=== PATIENT | male | born 1995 | race African-American/Black ===

== ENCOUNTER 2019-02-12 11:13 | Emergency (ER) | payer OTHER ==
[~2019-02-12] VITALS: Ht 193 cm; Wt 127.0 kg
[2019-02-12] MEDS ORDERED: NKM (11:18)
--- NOTE | 2019-02-12 11:26 | NUR ---
ED Nurse Note: Patient walked in ED from home c/o painful urination x 2 days and requesting for STD testing. Patient denies discharge. ERMD at bedside at this time. Urine sample sent down to lab.
[2019-02-12 11:28] VITALS: BP 130/84
[2019-02-12] MEDS ORDERED: Azithromycin 250mg tab ORAL ONE (11:30)
[2019-02-12] MEDS ORDERED: cefTRIAXone 500mg Inj IM ONE (11:30)
[2019-02-12] MEDS ORDERED: Lidocaine 1% MPF 10mg/ml 5ml INJ ONE (11:30)
--- NOTE | 2019-02-12 11:32 | Emergency Room Report ---
History of Present Illness General Chief Complaint: Male Urogenital Problems Source: Patient Present Illness HPI 23-year-old male presents with dysuria x2 days no aggravating leaving factors severity is mild, no fevers no chills no new lesions, patient had unprotected oral sex 2 days ago, no nausea no vomiting no abdominal pain patient presents for evaluation Allergies: Coded Allergies: No Known Allergies (Unverified , 02/12/19) Patient History Past Medical History: see triage record Reviewed Nursing Documentation: PMH: Agreed; PSxH: Agreed Nursing Documentation-PMH Past Medical History: No Stated History Review of Systems All Other Systems: negative except mentioned in HPI Physical Exam Vital Signs Date Time Temp Pulse Resp B/P (MAP) Pulse Ox O2 Delivery O2 Flow Rate FiO2 02/12/19 11:15 98.1 90 19 130/84 (99) 97 Room Air General Appearance: well appearing, no apparent distress Head: normocephalic, atraumatic ENT: hearing grossly normal, normal voice Neck: full range of motion, supple Respiratory: no respiratory distress, speaking full sentences Genitourinary: other - Control Clerk Head Christina RN, No lesions, uncircumcised penis, Neurologic: alert, normal gait Psychiatric: mood/affect normal Skin: no rash Medical Decision Making Diagnostic Impression: Primary Impression: STD exposure ER Course 23-year-old male presents with possible STD exposure, will treat prophylactically ceftriaxone and azithro refer to orders, counseled patient to follow-up with PCP and obtain a STD testing Disposition home with return precautions Last Vital Signs Date Time Temp Pulse Resp B/P (MAP) Pulse Ox O2 Delivery O2 Flow Rate FiO2 02/12/19 11:15 98.1 90 19 130/84 (99) 97 Room Air Condition: Stable Referrals: [facility] Patient Instructions: Chlamydia, Male, Gonorrhea, Urethritis, Adult Additional Instructions: The patient was provided with discharge instructions, notified to follow-up with a primary care doctor and or specialist in the next 24-48 hours, and to return to the ED if they have worsening of their symptoms. Please note that this report is being documented using DRAGON technology. This can lead to erroneous entry secondary to incorrect interpretation by the dictating instrument. Reddy Bee MD Feb 12, 2019 11:32
--- NOTE | 2019-02-12 11:42 | NUR ---
ER DISCHARGE NOTE: Patient is cleared to be discharged per ERMD, pt is aox4, on room air, with stable vital signs. pt was given dc and prescription instructions, pt was able to verbalize understanding, pt id band removed without complications. pt is able to ambulate with steady gait. pt took all belongings.
[2019-02-12 11:53] VITALS: BP 130/84
== END 2019-02-12 11:42 | disposition home or self-care (01) ==
LOC: EMR 11:30
DX: R30.0 Dysuria (principal); Z20.2 Contact with and (suspected) exposure to infections with a predominantly sexual mode of transmission
CPT/HCPCS: 96372; 96374; J0696; Q0144; Z7502; 99284

== ENCOUNTER 2019-03-10 20:40 | Emergency (ER) | payer OTHER ==
[~2019-03-10] VITALS: Ht 193 cm; Wt 127.5 kg
[~2019-03-10 20:40] MED LIST: NKM
--- NOTE | 2019-03-10 20:57 | NUR ---
ED Nurse Note: Patient walked into ED c/o hematuria for 2 weeks now, states that he was seen here last month and was given antibiotics and was advised to not have intercourse, but he did and now reports of repeat of symptoms from last visit. ao4. nad. vss. ambulates with steady gait. family at bedside.
[2019-03-10 20:58] VITALS: BP 134/92
--- NOTE | 2019-03-10 21:03 | NUR ---
ED Nurse Note: ermd at bedside for evaluation. urine collected; sent down to lab.
[2019-03-10 21:41] LABS: APPEARANCE,URINE SLIGHTLY CLOUDY; BILIRUBIN, URINE NEGATIVE (NEGATIVE); GLUCOSE, URINE (UA) NEGATIVE (NEGATIVE); KETONES,URINE 1+ (NEGATIVE); LEUKOCYTE ESTERASE ,URINE 2+ (NEGATIVE); NITRITE,URINE NEGATIVE (NEGATIVE); PH,URINE 5 (4.5-8.0); PROTEIN,URINE 1+ (NEGATIVE); UROBILINOGEN,URINE 1 MG/DL (0.0-1.0)
[2019-03-10 21:42] LABS: COLOR,URINE YELLOW
--- NOTE | 2019-03-10 21:53 | Emergency Room Report ---
History of Present Illness General Chief Complaint: Male Urogenital Problems Source: Patient Present Illness HPI 23-year-old male presents ED for evaluation. Describing hematuria for the last 2 weeks. Describes some discomfort with urination. States that the hematuria has been resolving but persists. Pain is dull, 2 out of 10, nonradiating. Denies fevers or chills. Denies flank pain. States that he just a few days ago had multiple STD testing done and states they were all negative. Was here last month for similar presentation. Was subsequently treated and discharged states symptoms did improve. States that he did have unprotected sex since then and symptoms returned. No other aggravating relieving factors. Denies any other associated symptoms Allergies: Coded Allergies: No Known Allergies (Unverified , 02/12/19) Patient History Past Medical History: none Past Surgical History: none Pertinent Family History: none Social History: Denies: smoking, alcohol use, drug use Immunizations: UTD Reviewed Nursing Documentation: PMH: Agreed; PSxH: Agreed Nursing Documentation-PMH Past Medical History: No Stated History Review of Systems All Other Systems: negative except mentioned in HPI Physical Exam Vital Signs Date Time Temp Pulse Resp B/P (MAP) Pulse Ox O2 Delivery O2 Flow Rate FiO2 03/10/19 20:47 98.6 90 18 134/92 (106) 98 Room Air Sp02 EP Interpretation: reviewed, normal General Appearance: no apparent distress, alert, GCS 15, non-toxic Head: normocephalic, atraumatic Eyes: bilateral eye normal inspection, bilateral eye PERRL ENT: hearing grossly normal, normal pharynx, no angioedema, normal voice Neck: full range of motion, supple/symm/no masses Respiratory: chest non-tender, lungs clear, normal breath sounds, speaking full sentences Cardiovascular #1: regular rate, rhythm, no edema Cardiovascular #2: 2+ carotid (R), 2+ carotid (L), 2+ radial (R), 2+ radial (L) , 2+ dorsalis pedis (R), 2+ dorsalis pedis (L) Gastrointestinal: normal bowel sounds, non tender, soft, non-distended, no guarding, no rebound Rectal: deferred Genitourinary: normal inspection, no CVA tenderness Musculoskeletal: back normal, normal range of motion, gait/station normal, non- tender Neurologic: alert, motor strength/tone normal, oriented x3, sensory intact, responsive, speech normal Psychiatric: judgement/insight normal, memory normal, mood/affect normal, no suicidal/homicidal ideation Reflexes: 3+ bicep (R), 3+ bicep (L), 3+ tricep (R), 3+ tricep (L), 3+ knee (R) , 3+ knee (L) Lymphatic: no adenopathy Medical Decision Making Diagnostic Impression: Primary Impression: Cystitis ER Course Hospital Course 23 yo M presents with hematuria Differential diagnoses include: UTI, cystitis, pyelonephritis Clinical course Patient placed on stretcher. After initial history and physical I ordered UA UA + bacteria + blood I discussed findings with the patient. Patient states that he has had recent STD testing in the last few days which were negative for chlamydia, gonorrhea, syphilis, HIV. We will treat as UTI. I will prescribe antibiotics, Pyridium. States he does not have a PMD. I will provide referrals Diagnosis - cystitis Stable and discharged home with prescriptions for Rx Keflex, pyridium. Instructed to followup with PMD. Return to ED if symptoms recur or worsen Labs Test 03/10/19 20:53 Urine Color Yellow Urine Appearance Slightly cloudy Urine pH 5 (4.5-8.0) Urine Specific [place] 1.020 (1.005-1.035) Urine Protein 1+ (NEGATIVE) Urine Glucose (UA) Negative (NEGATIVE) Urine Ketones 1+ (NEGATIVE) Urine Blood 3+ (NEGATIVE) Urine Nitrite Negative (NEGATIVE) Urine Bilirubin Negative (NEGATIVE) Urine Urobilinogen 1 MG/DL (0.0-1.0) Urine Leukocyte Esterase 2+ (NEGATIVE) Urine RBC 5-10 /HPF (0 - 0) Urine WBC 15-20 /HPF (0 - 0) Urine Squamous Epithelial Cells Few /LPF (NONE/OCC) Urine Bacteria Few /HPF (NONE) Urine Mucus Few /LPF (NONE/OCC) Last Vital Signs Date Time Temp Pulse Resp B/P (MAP) Pulse Ox O2 Delivery O2 Flow Rate FiO2 03/10/19 20:58 98.6 72 18 134/92 98 Room Air Status: improved Disposition: HOME, SELF-CARE Condition: Stable Scripts Phenazopyridine Hcl* (PYRIDIUM*) 100 Mg Tablet 100 MG ORAL THREE TIMES A DAY for 3 Days, #9 TAB Prov: Alex Hernandez MD 03/10/19 Cephalexin* (KEFLEX*) 500 Mg Capsule 500 MG ORAL EVERY 6 HOURS for 7 Days, #28 CAP Prov: Alex Hernandez MD 03/10/19 Alex Hernandez MD Mar 10, 2019 21:53
[2019-03-10] MEDS ORDERED: PHENAZOPYRIDIN100 MG ORAL (21:58)
[2019-03-10] MEDS ORDERED: CEPHALEXIN500 MG ORAL (21:58)
[2019-03-10 22:00] VITALS: BP 134/92
--- NOTE | 2019-03-10 22:00 | NUR ---
ER DISCHARGE NOTE: Patient is cleared to be discharged per ERMD, pt is aox4, on room air, with stable vital signs. accompanied by family member. pt was given dc and prescription instructions, pt was able to verbalize understanding, pt id band removed. pt is able to ambulate with steady gait. pt took all belongings.
== END 2019-03-10 22:00 | disposition home or self-care (01) ==
LOC: EMR 22:00
DX: N30.01 Acute cystitis with hematuria (principal)
CPT/HCPCS: 81003; 87086; Z7502; 99283